=== PATIENT | female | born 1975 ===

== ENCOUNTER 2018-04-05 10:11 | Outpatient (CLI) | payer OTHER ==
[~2018-04-05] VITALS: Ht 154.9 cm; Wt 59.9 kg
== END 2018-04-05 10:30 | disposition home or self-care (01) ==
LOC: OFIC 805 10:11
DX: H61.23 Impacted cerumen, bilateral (principal); H91.8X3 Other specified hearing loss, bilateral; H93.8X3 Other specified disorders of ear, bilateral

== ENCOUNTER 2020-10-04 14:16 | Outpatient (CLI) | payer OTHER | END 2020-10-04 15:24 | disposition home or self-care (01) | LOC: OFIC 805 14:16 | PROVIDERS: ATTEND Otolaryngology | DX: H90.3 Sensorineural hearing loss, bilateral (principal); H61.23 Impacted cerumen, bilateral; H93.8X3 Other specified disorders of ear, bilateral ==